=== PATIENT | male | born 1960 | race Caucasian/White ===

== ENCOUNTER 2016-08-29 18:30 | Inpatient (IN) | payer OTHER, MEDICARE ==
[~2016-08-29] VITALS: Ht 177.8 cm; Wt 85.0 kg
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
[2016-08-29] MEDS ORDERED: MORPHINE SULFATE 4 MG/ML INJ IV PUSH ONE (19:15)
[2016-08-29] MEDS ORDERED: ONDANSETRON HCL 4 MG/2 ML VIAL IVP ONE (19:15)
[2016-08-29] MEDS ORDERED: SODIUM CHLORIDE 0.9% FLUSH 5 ML FLUSH IVF PRN (19:15)
[2016-08-29 19:42] VITALS: O2SAT 96
[2016-08-29 19:50] VITALS: BP 187/97; PULSE 87; RESP 20; TEMP 97.2; O2SAT 96
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
[2016-08-29 20:34] LABS: AUTOMATED NEUTROPHIL # 8.4 TH/MM3 (1.8-7.7); BASOPHIL # 0.1 TH/MM3 (0-0.2); BASOPHIL % 0.5 % (0.0-2.0); EOSINOPHIL # 0.2 TH/MM3 (0-0.4); EOSINOPHIL % 1.5 % (0.0-4.0); HEMO FLAGS DIFF FINAL; LYMPH % 13.1 % (9.0-44.0); LYMPHOCYTE # 1.4 TH/MM3 (1.0-4.8); MEAN CELL VOLUME 89.2 FL (80.0-100.0); MEAN CORPUSCULAR HEMOGLOBIN 31.4 PG (27.0-34.0); MEAN CORPUSCULAR HGB CONC 35.2 % (32.0-36.0); MONO % 8.5 % (0.0-8.0); NEUT % 76.4 % (16.0-70.0); PLATELET COUNT 152 TH/MM3 (150-450); RED BLOOD COUNT 5.16 MIL/MM3 (4.50-5.90); RED CELL DISTRIBUTION WIDTH 12.8 % (11.6-17.2)
[2016-08-29] MEDS ORDERED: IOHEXOL 350 MG/ML 10 ML VIAL (for RAD DIAG) IV ONE (20:35)
[2016-08-29 20:44] LABS: APTT (PATIENT) 25.7 SEC (24.3-30.1); PROTHROMBIN TIME - PATIENT 11.2 SEC (9.8-11.6)
[2016-08-29 20:55] LABS: ANION GAP 9 MEQ/L (5-15); AST (GOT) 34 U/L (15-37); BICARBONATE 27.8 MEQ/L (21.0-32.0); BLOOD UREA NITROGEN 10 MG/DL (7-18); CHLORIDE 101 MEQ/L (98-107); GLOMERULAR FILTRATION RATE 84 ML/MIN (>89); POTASSIUM 3.8 MEQ/L (3.5-5.1); SODIUM (NA) 138 MEQ/L (136-145)
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
[2016-08-29 21:00] LABS: ALKALINE PHOSPHATASE 67 U/L (45-117); ALT (GPT) 52 U/L (12-78); CREATINE KINASE 344 U/L (39-308)
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
[2016-08-29 21:12] LABS: CKMB 1.8 NG/ML (0.5-3.6)
[2016-08-29] MEDS ORDERED: HYDROmorphone HCL PF 1 MG/ML VIAL IV PUSH ONE (21:45)
[2016-08-29 22:38] LABS: BACTERIA, URINE RARE /hpf; BLOOD, URINE TRACE (NEG); COMMENT (UR) CULT NOT INDICATED; CULTURE IF INDICATED CULT NOT INDICATED; GLUCOSE,URINE NEG (NEG); KETONE, URINE 10 mg/dL (NEG); NITRITE,URINE NEG (NEG); PH, URINE 5.5 (5.0-8.5); SQUAMOUS EPITHELIAL CELL URINE <1 /hpf (0-5); URINE COLOR YELLOW (YELLW/STRAW)
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
[2016-08-30] VITALS (9 sets, daily range): BP systolic 130–166; BP diastolic 74–96; PULSE 60–86; RESP 16–20; TEMP 95.8–97.9; O2SAT 90–93
[2016-08-30] MEDS ORDERED: NALOXONE HCL 0.4 MG/ML AMP IV PRN ×2 (01:00→07:30)
[2016-08-30] MEDS: BACITRACIN TOP OINT 15 GM TUBE TOP SCH ×3 (01:00→19:46)
[2016-08-30] MEDS ORDERED: MISCELLANEOUS NURSING INFORMATION XX SCH (01:00)
[2016-08-30] MEDS ORDERED: ACETAMINOPHEN 325 MG TAB PO PRN (01:00)
[2016-08-30] MEDS ORDERED: ONDANSETRON HCL 4 MG/2 ML VIAL IV PRN (01:00)
[2016-08-30] MEDS ORDERED: PCA - TOTAL MG MORPHINE DELIVERED PER SHIFT SCH (01:00)
[2016-08-30] MEDS ORDERED: ENALAPRILAT 1.25 MG/ML VIAL IV PRN (01:00)
[2016-08-30] MEDS ORDERED: SODIUM CHLORIDE 0.9% FLUSH 5 ML FLUSH IVF PRN (01:00)
[2016-08-30] MEDS ORDERED: CHLORHEXIDINE GLUCONATE 2 % 1 PACK (2 CLOTHS) TOP PRN (01:00)
[2016-08-30] MEDS ORDERED: MORPHINE SULFATE 30 MG/30 ML PCA IV SCH (01:00)
[2016-08-30] MEDS ORDERED: MAGNESIUM HYDROXIDE SUSP 30 ML CUP PO PRN (01:00)
[2016-08-30] MEDS: SODIUM CHLOR 0.9% 1000 ML INJ 1,000 ML IV SCH (01:17)
[2016-08-30] MEDS: PANTOPRAZOLE SODIUM 40 MG VIAL IVP SCH (01:18)
[2016-08-30] MEDS: ENOXAPARIN SODIUM 30 MG/0.3 ML SYRINGE SQ SCH ×2 (02:00→14:47)
[2016-08-30] MEDS ORDERED: CHLORHEXIDINE GLUCONATE 2 % 1 PACK (2 CLOTHS) TOP SCH (04:00)
[2016-08-30] MEDS: RESP: ALBUTEROL CONC 2.5 MG/0.5 ML NEB NEB SCH ×4 (05:11→21:35)
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
[2016-08-30] MEDS: PCA - TOTAL MG DILAUDID DELIVERED PER SHIFT OTHER SCH ×3 (07:30→22:00)
[2016-08-30] MEDS: guaiFENesin E.R. 600 MG TAB PO SCH ×2 (07:59→19:44)
[2016-08-30] MEDS: DOCUSATE SODIUM 100 MG CAP PO SCH ×2 (07:59→19:44)
[2016-08-30] MEDS: TAMSULOSIN HCL 0.4 MG CAP PO SCH (07:59)
[2016-08-30] MEDS: LIDOCAINE HCL 5% PATCH TD SCH (08:01)
[2016-08-30] MEDS: METHOCARBAMOL 500 MG TAB PO SCH ×2 (08:01→15:14)
[2016-08-30] MEDS: HYDROmorphone HCL PCA 6 MG/30 ML IV SCH (08:17)
[2016-08-30 09:11] LABS: AUTOMATED NEUTROPHIL # 9.5 TH/MM3 (1.8-7.7); BASOPHIL # 0.1 TH/MM3 (0-0.2); BASOPHIL % 0.8 % (0.0-2.0); EOSINOPHIL # 0.1 TH/MM3 (0-0.4); EOSINOPHIL % 0.8 % (0.0-4.0); HEMATOCRIT 45.7 % (39.0-51.0); LYMPH % 11.7 % (9.0-44.0); LYMPHOCYTE # 1.4 TH/MM3 (1.0-4.8); MEAN CELL VOLUME 90.2 FL (80.0-100.0); MEAN CORPUSCULAR HEMOGLOBIN 31.8 PG (27.0-34.0); MEAN CORPUSCULAR HGB CONC 35.3 % (32.0-36.0); NEUT % 77.7 % (16.0-70.0); PLATELET COUNT 174 TH/MM3 (150-450); RED BLOOD COUNT 5.07 MIL/MM3 (4.50-5.90); RED CELL DISTRIBUTION WIDTH 12.4 % (11.6-17.2); WHITE BLOOD COUNT 12.3 TH/MM3 (4.0-11.0)
[2016-08-30 09:12] LABS: HEMO FLAGS AUTO DIFF
[2016-08-30 09:24] LABS: BICARBONATE 29.1 MEQ/L (21.0-32.0); POTASSIUM 4.1 MEQ/L (3.5-5.1)
[2016-08-30 09:39] LABS: BANDS 5 % (0-6); MYELOCYTES 1 % (0-0); NEUTROPHIL # MANUAL DIFF 8.4 TH/MM3 (1.8-7.7); PLATELET ESTIMATE SMEAR NORMAL (NORMAL); PLATELET MORPHOLOGY NORMAL (NORMAL); POLYS (SEG NEUTROPHILS) 62 % (16-70); WBC DIFF SAMPLE 100
[2016-08-30 09:40] LABS: SCAN/DIFF FINAL DIFF MANUAL
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
[2016-08-30] MEDS ORDERED: LABE200T2 PO (13:29)
[2016-08-30] MEDS ORDERED: PANT40TA3 PO (13:29)
[2016-08-30] MEDS ORDERED: TAMS5CAP PO (13:29)
[2016-08-30] MEDS ORDERED: AMLO10 PO (13:29)
[2016-08-30] MEDS ORDERED: PRAV40TA2 PO (13:29)
[2016-08-30] MEDS ORDERED: ZOLP10TA3 PO (13:29)
[2016-08-30] MEDS ORDERED: LISI40TA PO (13:29)
[2016-08-30] MEDS: KETOROLAC TROMETHAMINE 30 MG/ML (IVP) VIAL IV PUSH SCH ×3 (14:47→22:52)
[2016-08-30] MEDS ORDERED: ZOLPIDEM TARTRATE 10 MG TAB PO PRN (15:00)
[2016-08-30] MEDS: LISINOPRIL 20 MG TAB PO SCH (15:14)
[2016-08-30] MEDS: PRAVASTATIN SOD 40 MG TAB PO SCH (15:14)
[2016-08-30] MEDS: LABETALOL HCL 200 MG TAB PO SCH ×2 (15:23→19:45)
--- NOTE | 2016-08-30 16:42 | EKG ---
Date Performed: 08/29/2016 Time Performed: 20:00:30 PTAGE: 56 years EKG: Sinus rhythm MODERATE INTRAVENTRICULAR CONDUCTION DELAY BORDERLINE ECG NO PREVIOUS TRACING DOCTOR: Ole Mcadams Interpretating Date/Time 08/30/2016 16:41:56
[2016-08-30] MEDS ORDERED: MAGNESIUM HYDROXIDE SUSP 30 ML CUP PO SCH (21:00)
[2016-08-30] MEDS ORDERED: REMOVE OLD PATCH T-DERMAL SCH (21:00)
[2016-08-31 00:01] VITALS: BP 160/85; PULSE 69; RESP 21; TEMP 96.9; O2SAT 92
[2016-08-31] MEDS: SODIUM CHLOR 0.9% 1000 ML INJ 1,000 ML IV SCH (00:51)
[2016-08-31] MEDS: PANTOPRAZOLE SODIUM 40 MG VIAL IVP SCH (01:34)
[2016-08-31] MEDS: METHOCARBAMOL 500 MG TAB PO SCH ×3 (01:34→15:23)
[2016-08-31] MEDS: ENOXAPARIN SODIUM 30 MG/0.3 ML SYRINGE SQ SCH ×2 (01:34→15:23)
[2016-08-31] MEDS: RESP: ALBUTEROL CONC 2.5 MG/0.5 ML NEB NEB SCH ×3 (03:42→15:34)
[2016-08-31 04:39] VITALS: BP 144/77; PULSE 71; RESP 20; TEMP 96; O2SAT 92
[2016-08-31] MEDS: KETOROLAC TROMETHAMINE 30 MG/ML (IVP) VIAL IV PUSH SCH ×2 (04:54→12:19)
[2016-08-31] MEDS: HYDROmorphone HCL PCA 6 MG/30 ML IV SCH (05:00)
[2016-08-31] MEDS: PCA - TOTAL MG DILAUDID DELIVERED PER SHIFT OTHER SCH ×2 (05:05→16:00)
--- NOTE | 2016-08-31 07:06 | RADRPT ---
EXAM DATE/TIME: 08/31/2016 06:23 [facility] COMPARISON: CT THORAX W CONTRAST, August 29, 2016, 20:05. CHEST PA & LAT, August 30, 2016, 9:18. INDICATIONS : Shortness of breath. MEDICAL HISTORY : None. SURGICAL HISTORY : None. ENCOUNTER: Subsequent ACUITY: 3 days PAIN SCORE: Non-responsive. LOCATION: Bilateral chest FINDINGS: Recent CT scan demonstrated multiple left rib fractures. Acute fractures of the left 3rd through 5th rib are discernible on this film. There is a questionable pleural reflection laterally in the upper left chest measuring 3 mm in width. This is a supine film and this suggests the possibility of pneu mothorax. Patchy areas of infiltrate in the lower lungs bilaterally without consolidation. Both hem idiaphragms are well delineated. CONCLUSION: Findings suggest a left sided pneumothorax on this supine film. Recommend performing an erect expira tory view of the chest for further assessment. Sukhi Sinclair MD on August 31, 2016 at 7:01 Board Certified Radiologist. This report was verified electronically.
[2016-08-31 07:09] VITALS: BP 132/73; PULSE 64; RESP 18; TEMP 95.9; O2SAT 90
[2016-08-31] MEDS: LABETALOL HCL 200 MG TAB PO SCH (08:15)
[2016-08-31] MEDS: TAMSULOSIN HCL 0.4 MG CAP PO SCH (08:15)
[2016-08-31] MEDS: guaiFENesin E.R. 600 MG TAB PO SCH (08:15)
[2016-08-31] MEDS: LISINOPRIL 20 MG TAB PO SCH (08:15)
[2016-08-31] MEDS: PRAVASTATIN SOD 40 MG TAB PO SCH (08:15)
[2016-08-31] MEDS: LIDOCAINE HCL 5% PATCH TD SCH (08:16)
[2016-08-31] MEDS: DOCUSATE SODIUM 100 MG CAP PO SCH (08:16)
[2016-08-31] MEDS: BACITRACIN TOP OINT 15 GM TUBE TOP SCH (08:17)
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
[2016-08-31] MEDS ORDERED: LACTULOSE SYRUP 20 GM/30 ML CUP PO SCH (09:00)
[2016-08-31 09:41] VITALS: O2SAT 92
[2016-08-31 11:23] VITALS: BP 133/71; PULSE 75; RESP 18; TEMP 98.4; O2SAT 91
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
[2016-08-31] MEDS ORDERED: WALKER WHEELS/F1 MIS (13:16)
[2016-08-31] MEDS ORDERED: oxyCODONE/ACETAMINOPHEN 5 MG/325 MG TAB PO PRN ×2 (14:30)
[2016-08-31] MEDS ORDERED: diphenhydrAMINE HCL 25 MG CAP PO PRN (15:45)
[2016-08-31 16:01] VITALS: BP 137/78; PULSE 75; RESP 18; TEMP 98.7; O2SAT 91
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
[2016-08-31] MEDS ORDERED: MOTR200T4 PO (17:23)
[2016-08-31] MEDS ORDERED: DOCU1CAP39 PO (17:23)
[2016-08-31] MEDS ORDERED: OXYC1TAB63 PO (17:23)
[2016-08-31] MEDS ORDERED: MILKSUS PO (17:23)
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
== END 2016-08-31 17:55 | disposition home or self-care (01) | DRG 184 ==
LOC: NEPE 18:30 → NEDA 22:18 → N06A 08-30 03:54
PROVIDERS: ADMIT Surgery; ATTEND Surgery
DX: S22.42XA Multiple fractures of ribs, left side, initial encounter for closed fracture (principal); S32.048A Other fracture of fourth lumbar vertebra, initial encounter for closed fracture; S30.1XXA Contusion of abdominal wall, initial encounter; S00.81XA Abrasion of other part of head, initial encounter; S42.112A Displaced fracture of body of scapula, left shoulder, initial encounter for closed fracture; V23.4XXA Motorcycle driver injured in collision with car, pick-up truck or van in traffic accident, initial encounter; Y92.410 Unspecified street and highway as the place of occurrence of the external cause; N40.0 Benign prostatic hyperplasia without lower urinary tract symptoms; F17.210 Nicotine dependence, cigarettes, uncomplicated; I10 Essential (primary) hypertension
CPT/HCPCS: 51702; 70450; 71010; 71020; 71260; 72125; 74177; 80048; 80053; 81001; 82550; 82552; 84484; 85007; 85025; 85027; 85610; 85730; 87641; 93005; 94150; 94640; 94664; 94667; 96374; 96375; C9113; J1170; J1650; J1885; J2270; J2405; J7030; J7611; Q9967